=== PATIENT | male | born 1965 | race Caucasian/White ===

== ENCOUNTER → 2017-09-28 | Outpatient (CLI) | payer OTHER ==
[~2017-09-28] MED LIST: CYAN100020 INJ; DUTA0.5C PO; ONDA4TAB10 SL; ONDA4TAB46 PO; OXYC-57 PO; OXYC-90 PO; TAMS0.4C38 PO; VITAMIN B12 IV
--- NOTE | 2017-09-28 13:04 | DIAGNOSTIC IMAGING REPORT ---
CHEST 2 VIEWS ROUTINE CLINICAL HISTORY: N20.0 [id number] COMPARISON STUDY: No previous studies for comparison. FINDINGS: The bones soft tissues and hemidiaphragms are normal. The cardiomediastinal silhouette is normal. The lungs are clear. The pulmonary vasculature is normal. IMPRESSION: Negative chest. The above report was generated using voice recognition software. It may contain grammatical, syntax or spelling errors. Electronically signed by: Carlos Moreno M.D. 09/28/2017 1:03 PM Dictated Date/Time: 09/28/2017 1:03 PM
--- NOTE | 2017-09-28 13:12 | DIAGNOSTIC IMAGING REPORT ---
KUB CLINICAL HISTORY: Nephrolithiasis. Right flank pain. COMPARISON STUDY: CT of the abdomen and pelvis September 25, 2017. FINDINGS: A 9 x 4 mm distal right ureteral calculus is unchanged in position since CT of November 26, 2017. Additional pelvic calcifications represent phleboliths. Bowel gas pattern is normal. IMPRESSION: No change in position of a 9 x 4 mm distal right ureteral calculus since CT of November 26, 2017. Electronically signed by: Demetrius Avalos M.D. 09/28/2017 1:10 PM Dictated Date/Time: 09/28/2017 1:07 PM
== END | disposition home or self-care (01) ==
LOC: C.CPL 12:13
PROVIDERS: ATTEND Urology
DX: N20.0 Calculus of kidney (principal); N20.1 Calculus of ureter

== ENCOUNTER → 2017-10-04 | Outpatient (CLI) | payer OTHER ==
[~2017-10-04] MED LIST changes: -CYAN100020 INJ; -ONDA4TAB10 SL; -OXYC-90 PO
--- NOTE | 2017-10-04 16:31 | DIAGNOSTIC IMAGING REPORT ---
KUB HISTORY: Ureteral stone. Follow-up. COMPARISON: KUB 09/28/2017. FINDINGS: The bowel gas pattern is unremarkable. There are no dilated loops of small bowel to suggest an obstruction. No change in the 9 x 4 mm distal right ureteral stone. Additional calcifications in the deep pelvis remain stable and likely represent phleboliths.. No left ureteral calculi. Calcifications within the right upper quadrant are demonstrated to be hepatic. No renal calculi identified. No pneumoperitoneum or pneumatosis. IMPRESSION: No change in the 9 x 4 mm distal right ureteral stone. Electronically signed by: Albert Hair M.D. 10/04/2017 4:29 PM Dictated Date/Time: 10/04/2017 4:28 PM
== END | disposition home or self-care (01) ==
LOC: C.RAD 16:01
PROVIDERS: ATTEND Urology
DX: N20.1 Calculus of ureter (principal)

== ENCOUNTER → 2017-10-05 | Day surgery (SDC) | payer OTHER ==
[2017-10-02 16:05] VITALS: Ht 182.9 cm; Wt 99.5 kg
[~2017-10-05] VITALS: Ht 182.9 cm; Wt 99.5 kg
[~2017-10-05] MED LIST changes: +ATROPINE SULFATE 0.1 MG/ML 5ML SYR IV PRN; +CIPROFLOXACIN 400MG / D5W IV SCH; +DEXAMETHASONE SOD INJ 4 MG/ML VIAL ONE; +EpHEDrine SULFATE INJ 50 MG/ML AMP IV PRN; +FENTANYL CITRATE INJ 50 MCG/1 ML 2 ML VIAL IV PRN; +FENTANYL CITRATE INJ 50 MCG/1 ML 2 ML VIAL ONE; +HYDROmorphone INJ 1 MG/ML SYR IV PRN; +LACTATED RINGER'S 1000ML 1,000 ML IV SCH; +LIDOCAINE HCL 2% 2 ML VIAL (20MG/ML) ONE; +MIDAZOLAM HCL 1 MG/ML 2ML VIAL ONE; +ONDANSETRON INJ 2 MG/ML 2 ML VIAL IV PRN; +ONDANSETRON INJ 2 MG/ML 2 ML VIAL ONE; +OXYCODONE/ACETAMINOPHEN 5-325 TAB PO PRN; +PHENYLEPHRINE 100MCG/ML 5ML SYR IV PRN; +PROMETHAZINE HCL INJ 12.5 MG in SODIUM CHLORIDE 0.9% 50ML 50 ML IV PRN; +PROPOFOL IV EMULSION 10 MG/ML 20 ML VIAL ONE; +SUCCINYLCHOLINE CHLORIDE 20 MG/ML 10 ML VIAL IV ONE
--- NOTE | 2017-10-05 07:41 | History & Physical Bridge Note ---
H&P Re-Evaluation Bridge Note: I have examined the patient, reviewed the History & Physical and in the interval since the performance of the History & Physical I have noted the following changes of clinical significance: No changes noted
--- NOTE | 2017-10-05 15:30 | Discharge Instructions ---
Discharge Instructions Date of Service Oct 05, 2017. Admission Reason for Admission: Stones Discharge Discharge Diagnosis / Problem: Right distal ureteral stone s/p ESWL Discharge Goals Goal(s): Decrease discomfort, Improve function, Improve disease control, Therapeutic intervention Activity Recommendations Activity Limitations: as noted below Lifting Limitations: no more than 25 pounds, gradually increase as tolerated Exercise/Sports Limitations: rest today, gradually increase as tolerated May Resume Sexual Activity: when tolerated Shower/Bathe: tomorrow . Instructions / Follow-Up Instructions / Follow-Up Follow-up in office as scheduled with KUB Xray before visit. Current Hospital Diet Patient's current hospital diet: Discharge Diet Recommended Diet: Regular Diet (good fluid intake) Procedures Procedures Performed: Left Extracorporeal Shock Wave Lithotripsy Pending Studies Studies pending at discharge: yes List of pending studies: KUB Xray before follow-up visit Medical Emergencies . Who to Call and When: Medical Emergencies: If at any time you feel your situation is an emergency, please call 911 immediately. . Non-Emergent Contact Non-Emergency issues call your: Urologist Call Non-Emergent contact if: you have a fever, temperature is above 101, your pain is not controlled, your pain is worsening, your pain is unusual for you, your pain is concerning you, you have any medication questions . . "Provider Documentation" section prepared by Barney Ac. . [place] Drug Monitoring Program Search Results: patient reviewed within database, see additional documentation (recent Rx for colic, renewed per patient request)
--- NOTE | 2017-10-05 15:39 | [facility] Post Operative Brief Note ---
Immediate Operative Summary Operative Date Oct 05, 2017. Pre-Operative Diagnosis Right Distal Ureteral Calculi Post-Operative Diagnosis Same Procedure(s) Performed Left Extracorporeal Shock Wave Lithotripsy Surgeon Dr. Edelmira Ac Political Researcher Surgeon(s) None Estimated Blood Loss 0 Findings Consistent with Post-Op Diagnosis Specimens None Drains None Anesthesia Type General Complication(s) none Disposition Accompanied Pt To Recover: no Disposition: Recovery Room / PACU
--- NOTE | 2017-10-05 16:25 | Anesthesia Progress Nt - [facility] ---
Anesthesia Post Op Note Date & Time Oct 05, 2017 at 16:25 Vital Signs Pain Intensity: 0 Vital Signs Past 12 Hours Date Time Temp Pulse Resp B/P (MAP) Pulse Ox O2 Delivery O2 Flow Rate FiO2 10/05/17 16:17 69 15 10/05/17 16:17 71 15 98 10/05/17 16:16 149/96 10/05/17 16:15 36.7 98 Room Air 10/05/17 16:12 74 13 98 10/05/17 16:12 72 13 10/05/17 16:11 146/99 10/05/17 16:08 73 16 100 10/05/17 16:08 73 16 10/05/17 16:07 141/96 10/05/17 16:03 69 21 10/05/17 16:03 70 21 100 10/05/17 16:02 74 11 146/86 98 10/05/17 16:02 74 11 10/05/17 15:57 79 13 10/05/17 15:57 77 13 131/79 100 10/05/17 15:56 148/99 10/05/17 15:54 177/101 10/05/17 15:52 37.1 74 12 148/99 99 Humidified Oxygen 9 Mask 10/05/17 07:11 37.0 70 18 132/88 (103) 98 Room Air Notes Mental Status: alert / awake / arousable, participated in evaluation Pt Amnestic to Procedure: Yes Nausea / Vomiting: adequately controlled Pain: adequately controlled Airway Patency, RR, SpO2: stable & adequate BP & HR: stable & adequate Hydration State: stable & adequate Anesthetic Complications: no major complications apparent Pt doing well, no complaints, VSS.
[2017-10-05 16:40] VITALS: BP 146/91; PULSE 79; O2SAT 99
--- NOTE | 2017-10-05 20:03 | OPERATIVE REPORT ---
DATE OF OPERATION: 10/05/2017 PREOPERATIVE DIAGNOSIS: Right distal ureteral stone. POSTOPERATIVE DIAGNOSIS: Right distal ureteral stone. PROCEDURE: Right distal ureteral extracorporal shockwave lithotripsy. SURGEON: Barney Ac M.D. SPOOL TENDER: None. ANESTHESIA: General anesthesia with endotracheal intubation. COMPLICATIONS: None. FINDINGS: Good fragmentation of right distal ureteral stone on fluoroscopic imaging intraoperatively. DRAINS: None. SPECIMENS: None. DETAILS OF PROCEDURE: The patient was brought to the litho suite. He was correctly identified and the stone was visualized on his most recent x-rays. After the correct time out was performed the patient was positioned over the therapy head. An adequate level of anesthesia was administered. The extracorporeal shockwave lithotripsy treatment was then commenced. Please see the [place] Kidney Stone Management sheet for complete treatment summary. After completion of the procedure the patient was taken to the recovery room in stable condition. I attest to the content of the Intraoperative Record and any orders documented therein. Any exception s are noted below.
== END | disposition home or self-care (01) ==
LOC: X.SURG 06:34
PROVIDERS: ATTEND Urology
DX: N20.1 Calculus of ureter (principal); E11.9 Type 2 diabetes mellitus without complications; G47.33 Obstructive sleep apnea (adult) (pediatric); F17.290 Nicotine dependence, other tobacco product, uncomplicated

== ENCOUNTER → 2017-10-10 | Outpatient (CLI) | payer OTHER ==
[~2017-10-10] MED LIST changes: -ATROPINE SULFATE 0.1 MG/ML 5ML SYR IV PRN; -CIPROFLOXACIN 400MG / D5W IV SCH; -DEXAMETHASONE SOD INJ 4 MG/ML VIAL ONE; -DUTA0.5C PO; -EpHEDrine SULFATE INJ 50 MG/ML AMP IV PRN; -FENTANYL CITRATE INJ 50 MCG/1 ML 2 ML VIAL IV PRN; -FENTANYL CITRATE INJ 50 MCG/1 ML 2 ML VIAL ONE; -HYDROmorphone INJ 1 MG/ML SYR IV PRN; -LACTATED RINGER'S 1000ML 1,000 ML IV SCH; -LIDOCAINE HCL 2% 2 ML VIAL (20MG/ML) ONE; -MIDAZOLAM HCL 1 MG/ML 2ML VIAL ONE; -ONDANSETRON INJ 2 MG/ML 2 ML VIAL IV PRN; -ONDANSETRON INJ 2 MG/ML 2 ML VIAL ONE; -OXYCODONE/ACETAMINOPHEN 5-325 TAB PO PRN; -PHENYLEPHRINE 100MCG/ML 5ML SYR IV PRN; -PROMETHAZINE HCL INJ 12.5 MG in SODIUM CHLORIDE 0.9% 50ML 50 ML IV PRN; -PROPOFOL IV EMULSION 10 MG/ML 20 ML VIAL ONE; -SUCCINYLCHOLINE CHLORIDE 20 MG/ML 10 ML VIAL IV ONE
--- NOTE | 2017-10-10 13:33 | DIAGNOSTIC IMAGING REPORT ---
KUB HISTORY: Follow-up study in a patient with history of kidney stones N20.0 COMPARISON: KUB 10/04/2017 and 09/28/2017, CT abdomen and pelvis 09/25/2017 FINDINGS: The bowel gas pattern is non-obstructive. There is no organomegaly. 9 x 4 mm calcification about the right hemipelvis suggests previously described calculus of the distal right ureter demonstrating a few millimeters of distal migration from comparison. Phleboliths of the left hemipelvis redemonstrated. No nephrolithiasis. No pneumoperitoneum or pneumatosis. No fracture. Degenerative changes at L5-S1. IMPRESSION: There has been a few millimeters of distal migration involving the 9 mm calculus of the distal right ureter. Electronically signed by: Lloyd Leonard M.D. 10/10/2017 1:31 PM Dictated Date/Time: 10/10/2017 1:26 PM
== END | disposition home or self-care (01) ==
LOC: C.RAD 12:57
PROVIDERS: ATTEND Urology
DX: N20.1 Calculus of ureter (principal)

== ENCOUNTER → 2017-10-19 | Outpatient (CLI) | payer OTHER ==
--- NOTE | 2017-10-19 09:02 | DIAGNOSTIC IMAGING REPORT ---
KUB CLINICAL HISTORY: Ureteric stone COMPARISON STUDY: 10/10/2017 FINDINGS: Unchanging distal right ureteral calculus. Bowel pattern is nonobstructive. No additional calcifications are identified. IMPRESSION: Unchanging distal right ureteral calculus. The above report was generated using voice recognition software. It may contain grammatical, syntax or spelling errors. Electronically signed by: Carlos Moreno M.D. 10/19/2017 9:01 AM Dictated Date/Time: 10/19/2017 8:55 AM
== END | disposition home or self-care (01) ==
LOC: C.RAD1850 08:27
PROVIDERS: ATTEND Urology
DX: N20.1 Calculus of ureter (principal)

== ENCOUNTER → 2017-10-19 | Day surgery (SDC) | payer OTHER ==
[2017-10-15 13:10] VITALS: Ht 182.9 cm; Wt 99.5 kg
[~2017-10-19] VITALS: Ht 182.9 cm; Wt 99.5 kg
[~2017-10-19] MED LIST changes: +ATROPINE SULFATE 0.1 MG/ML 5ML SYR IV PRN; +CIPROFLOXACIN / D5W 400 MG IV SCH; +DEXAMETHASONE SOD INJ 4 MG/ML VIAL ONE; +EpHEDrine SULFATE INJ 50 MG/ML AMP IV PRN; +FENTANYL CITRATE INJ 50 MCG/1 ML 2 ML VIAL ONE; +GLYCOPYRROLATE INJ 0.2 MG/ML VIAL ONE; +HYDROCODONE/ACETAMIN 5/325MG TAB PO PRN; +LACTATED RINGER'S 1000ML 1,000 ML IV SCH; +LIDOCAINE HCL 2% 2 ML VIAL (20MG/ML) ONE; +MIDAZOLAM HCL 1 MG/ML 2ML VIAL ONE; +MISSING PHYSICIAN SIGNATURE ON ORDER SCH; +ONDANSETRON INJ 2 MG/ML 2 ML VIAL ONE; +PROPOFOL IV EMULSION 10 MG/ML 20 ML VIAL ONE
--- NOTE | 2017-10-19 10:04 | Discharge Instructions ---
Discharge Instructions Date of Service Oct 19, 2017. Admission Reason for Admission: STONE Discharge Discharge Diagnosis / Problem: Right Distal Stone Discharge Goals Goal(s): Decrease discomfort, Improve function, Increase independence Activity Recommendations Activity Limitations: resume your previous activity Lifting Limitations: gradually increase as tolerated Exercise/Sports Limitations: gradually increase as tolerated . Instructions / Follow-Up Instructions / Follow-Up May have blood in urine. may have pelvic discomfort. Call if any issues. Current Hospital Diet Patient's current hospital diet: Discharge Diet Recommended Diet: Regular Diet Procedures Procedures Performed: Right ESWL Pending Studies Studies pending at discharge: no Medical Emergencies . Who to Call and When: Medical Emergencies: If at any time you feel your situation is an emergency, please call 911 immediately. . Non-Emergent Contact Non-Emergency issues call your: Primary Care Provider, Urologist Call Non-Emergent contact if: you have a fever, temperature is above 101, temperature is above 101.5, your pain is not controlled, your pain is worsening , your pain is unusual for you . . "Provider Documentation" section prepared by Ole Najera. .
--- NOTE | 2017-10-19 11:30 | [facility] Operative Report ---
Operative Report Operative Date Oct 19, 2017. Pre-Operative Diagnosis Right distal ureteral stones Post-Operative Diagnosis Same Procedure(s) Performed Right ESWL Surgeon Reinaldo Estimated Blood Loss Minimal Findings Right distal stones Drains None Anesthesia Type General Complication(s) none Disposition Recovery Room / PACU Indications Right distal stone. Risks and benefits discussed. Description of Procedure Patient was consented and brought back to the operating room. Patient was placed under anesthesia in the supine position. Patient was prepped and draped in the regular sterile fashion. A time out was completed. With the time out completed, The patient was assessed with fluoroscopy. The stone was identified and position was triangulated. At this point, the shock waves commenced. The stone was monitored throughout the process with fluoroscopy to assess progression and maintain position. Please see the [place] Kidney Stone Management Sheet for full report and detailed summary of procedure. With the stone treated, the procedure ended. The patient was cleaned, aroused from anesthesia, and transferred to the pacu in stable condition having tolerated the procedure well with no complications. I was present and participated in all aspects of the procedure. The patient will be monitored in the PACU until transferred. I attest to the content of the Intraoperative Record and any orders documented therein. Any exceptions are noted below.
--- NOTE | 2017-10-19 11:53 | Anesthesia Progress Nt - [facility] ---
Anesthesia Post Op Note Date & Time Oct 19, 2017 at 11:52 Vital Signs Pain Intensity: 0 Vital Signs Past 12 Hours Date Time Temp Pulse Resp B/P (MAP) Pulse Ox O2 Delivery O2 Flow Rate FiO2 10/19/17 11:41 119/73 10/19/17 11:40 49 9 10/19/17 11:40 51 9 99 10/19/17 11:36 145/92 10/19/17 11:35 37.2 63 14 145/92 98 Mask 8 10/19/17 09:11 37.1 60 18 130/89 (103) 97 Room Air Notes Mental Status: alert / awake / arousable, participated in evaluation Pt Amnestic to Procedure: Yes Nausea / Vomiting: adequately controlled Pain: adequately controlled Airway Patency, RR, SpO2: stable & adequate BP & HR: stable & adequate Hydration State: stable & adequate Anesthetic Complications: no major complications apparent
[2017-10-19 12:41] VITALS: BP 132/74; PULSE 49; O2SAT 98
== END | disposition home or self-care (01) ==
LOC: X.SURG 08:42
PROVIDERS: ATTEND Urology
DX: N20.1 Calculus of ureter (principal); E66.9 Obesity, unspecified; Z68.30 Body mass index [BMI] 30.0-30.9, adult; F17.290 Nicotine dependence, other tobacco product, uncomplicated

== ENCOUNTER → 2017-10-30 | Outpatient (CLI) | payer OTHER ==
[~2017-10-30] MED LIST changes: -ATROPINE SULFATE 0.1 MG/ML 5ML SYR IV PRN; -CIPROFLOXACIN / D5W 400 MG IV SCH; -DEXAMETHASONE SOD INJ 4 MG/ML VIAL ONE; -EpHEDrine SULFATE INJ 50 MG/ML AMP IV PRN; -FENTANYL CITRATE INJ 50 MCG/1 ML 2 ML VIAL ONE; -GLYCOPYRROLATE INJ 0.2 MG/ML VIAL ONE; -HYDROCODONE/ACETAMIN 5/325MG TAB PO PRN; -LACTATED RINGER'S 1000ML 1,000 ML IV SCH; -LIDOCAINE HCL 2% 2 ML VIAL (20MG/ML) ONE; -MIDAZOLAM HCL 1 MG/ML 2ML VIAL ONE; -MISSING PHYSICIAN SIGNATURE ON ORDER SCH; -ONDANSETRON INJ 2 MG/ML 2 ML VIAL ONE; -PROPOFOL IV EMULSION 10 MG/ML 20 ML VIAL ONE
--- NOTE | 2017-10-30 09:53 | DIAGNOSTIC IMAGING REPORT ---
KUB HISTORY: Follow-up study in a patient with history of nephrolithiasis N20.1 COMPARISON: KUB 10/19/2017 and 10/10/2017, CT 09/25/2017 FINDINGS: The bowel gas pattern is non-obstructive. There is no organomegaly. Previously noted calculus about the distal right ureter is not definitively seen. There is however moderate stool volume noted within the rectum. Coarse calcifications of the abdominal right upper quadrant are redemonstrated correlating with hepatic calcifications. No definite nephrolithiasis or ureteral calculi identified. Phleboliths of the pelvis redemonstrated. No pneumoperitoneum or pneumatosis. No fracture. IMPRESSION: No definite renal or ureteral calculi identified. Electronically signed by: Lloyd Leonard M.D. 10/30/2017 9:52 AM Dictated Date/Time: 10/30/2017 9:49 AM
== END | disposition home or self-care (01) ==
LOC: C.RAD 09:23
PROVIDERS: ATTEND Urology
DX: N20.1 Calculus of ureter (principal)